=== PATIENT | female | born 1990 | race Two or more races ===

== ENCOUNTER 2018-01-25 06:44 | Inpatient (IN) | payer SELFPAY ==
[2018-01-25] VITALS (11 sets, daily range): BP systolic 119–158; BP diastolic 70–89
[~2018-01-25] VITALS: Ht 157.5 cm; Wt 81.6 kg
[2018-01-25] MEDS ORDERED: fentaNYL PF VIAL 100 MCG/2 ML VIAL IV ONE (07:45)
[2018-01-25] MEDS ORDERED: ONDANSETRON PF 4 MG/2 ML VIAL. IV ONE (07:45)
[2018-01-25] MEDS ORDERED: IV NORMAL SALINE 1000ML BAG 1,000 ML IV ONE (07:45)
[2018-01-25 07:48] LABS: BILIRUBIN,URINE NEGATIVE (NEG); CLARITY,URINE CLEAR; COLOR,URINE YELLOW; NITRITE,URINE NEGATIVE (NEG); PH,URINE 6.5; PROTEIN,URINE NEGATIVE (NEG-TRACE); UROBILINOGEN,URINE 0.2 mg/dL (0.2 mg/dL)
--- NOTE | 2018-01-25 08:05 | RAD ---
Indication:RUQ PAIN TECHNIQUE: Grayscale, color Doppler and spectral waveform is of the abdomen obtained. COMPARISON:None FINDINGS:Visualized pancreas is within normal limits. Pancreatic tail not visualized due to overlying bowel gas. IVC is patent. Main portal vein is patent. Liver demonstrates diffusely increased echogenicity and decreased through transmission. Gallstones noted. Gallbladder is nondistended. Gallbladder wall measures 3 mm in thickness which is upper limits of normal. CBD measures 7 mm in diameter and is dilated. Right kidney measures 13.8 cm in length without hydronephrosis. IMPRESSION: 1. Cholelithiasis without sonographic evidence of acute cholecystitis. If concern for acute cholecystitis persists, please consider nuclear medicine HIDA scan. 2. Dilated CBD which may be from choledocholithiasis, stricture or mass. Consider further evaluation with MRCP. 3. Hepatic steatosis. Electronically signed by: Rich Marcano DO (01/25/2018 8:02 AM) [facility]
[2018-01-25 08:09] LABS: BACTERIA,URINE 0 /HPF (0-FEW); RBC,URINE 0 /HPF (0-2); SQUAMOUS EPITHELIAL CELL,UR MANY /LPF
[2018-01-25 08:20] LABS: BASO % 0 % (0-3); EOS # 0.2 x10^3/uL (0.0-0.7); EOS % 2 % (0-3); HEMATOCRIT 39.9 % (36.0-47.0); HEMOGLOBIN 13.6 g/dL (12.0-15.5); LYMPH % 20 % (24-48); MEAN CORPUSCULAR HEMOGLOBIN 29 pg (25-35); MEAN CORPUSCULAR HGB CONC 34 g/dL (31-37); MEAN CORPUSCULAR VOLUME 85 fL (79-100); MONO # 0.4 x10^3/uL (0.0-1.1); MONO % 4 % (0-9); NEUT # 7.4 x10^3uL (1.8-7.7); NEUT % 74 % (31-73); PLATELET COUNT 266 x10^3/uL (140-400); RED BLOOD COUNT 4.68 x10^6/uL (3.50-5.40); RED CELL DISTRIBUTION WIDTH 14.1 % (11.5-14.5); WHITE BLOOD COUNT 10.1 x10^3/uL (4.0-11.0)
[2018-01-25 08:31] LABS: CALCIUM 9.2 mg/dL (8.5-10.1); CREATININE 0.8 mg/dL (0.6-1.0); GFR 86.7; POTASSIUM 4.1 mmol/L (3.5-5.1)
[2018-01-25] MEDS ORDERED: MORPHINE SULFATE 4 MG/ML VIAL. ONE (08:36)
[2018-01-25 08:37] LABS: ALBUMIN 3.7 g/dL (3.4-5.0); ALBUMIN/GLOBULIN RATIO 0.9 (1.0-1.7); TOTAL BILIRUBIN 0.3 mg/dL (0.2-1.0)
[2018-01-25] MEDS ORDERED: MORPHINE SULFATE 4 MG/ML VIAL. IV ONE (08:45)
--- NOTE | 2018-01-25 09:03 | PHYS DOC ---
Past Medical History Past Medical History: No Pertinent History Past Surgical History: No Surgical History Alcohol Use: None Drug Use: None Adult General Chief Complaint Chief Complaint: ABDOMINAL PAIN HPI HPI Patient is a 27 year old f p/w abdo pain ruq sharp x 8 hours worse with palpation and deep breathing. radiates to back. has had this in the past but gone away on its own nauseas no fever no diarrhea. Review of Systems Review of Systems Constitutional: Denies fever or chills [] Eyes: Denies change in visual acuity, redness, or eye pain [] HENT: Denies nasal congestion or sore throat [] Musculoskeletal: Denies back pain or joint pain [] Integument: Denies rash or skin lesions [] Neurologic: Denies headache, focal weakness or sensory changes [] Endocrine: Denies polyuria or polydipsia [] All other systems were reviewed and found to be within normal limits, except as documented in this note. Current Medications Current Medications Current Medications Medications (Trade) Dose Ordered Sig/Wes Start Time Stop Time Status Last Admin Dose Admin Fentanyl Citrate (Fentanyl 2ml Vial) 50 mcg 1X ONCE 01/25/18 07:45 01/25/18 07:46 DC 01/25/18 08:07 50 MCG Morphine Sulfate (Morphine Sulfate) 4 mg STK-MED ONCE 01/25/18 08:36 01/25/18 08:37 DC Ondansetron HCl (Zofran) 4 mg 1X ONCE 01/25/18 07:45 01/25/18 07:46 DC 01/25/18 08:04 4 MG Sodium Chloride 1,000 ml @ 1,000 mls/hr 1X ONCE 01/25/18 07:45 01/25/18 08:44 DC 01/25/18 08:07 1,000 MLS/HR Allergies Allergies Allergies Coded Allergies Type Severity Reaction Last Updated Verified No Known Drug Allergies 09/26/14 No Physical Exam Physical Exam Constitutional: Well developed, well nourished, no acute distress, non-toxic appearance. [] HENT: Normocephalic, atraumatic, bilateral external ears normal, oropharynx moist, no oral exudates, nose normal. [] Eyes: PERRLA, EOMI, conjunctiva normal, no discharge. [] Neck: Normal range of motion, no tenderness, supple, no stridor. [] resp: normal effort no increased work of breathing. Abdomen: Bowel sounds normal, soft, ruq tenderness with positive murphys sign. no masses, no pulsatile masses. [] Neurologic: Alert and oriented X 3, normal motor function, normal sensory function, no focal deficits noted. [] Psychologic: Affect normal, judgement normal, mood normal. [] Current Patient Data Vital Signs Vital Signs Date Time Temp Pulse Resp B/P (MAP) Pulse Ox O2 Delivery O2 Flow Rate FiO2 01/25/18 08:43 68 18 171/83 (112) 98 01/25/18 07:41 98.0 Room Air 98.0 Lab Values Laboratory Tests Test 01/25/18 07:30 01/25/18 07:40 01/25/18 08:03 Urine Collection Type Unknown Urine Color Yellow Urine Clarity Clear Urine pH 6.5 Urine Specific [place] >=1.030 Urine Protein Negative mg/dL (NEG-TRACE) Urine Glucose (UA) Negative mg/dL (NEG) Urine Ketones (Stick) Negative mg/dL (NEG) Urine Blood Negative (NEG) Urine Nitrite Negative (NEG) Urine Bilirubin Negative (NEG) Urine Urobilinogen Dipstick 0.2 mg/dL (0.2 mg/dL) Urine Leukocyte Esterase Trace (NEG) Urine RBC 0 /HPF (0-2) Urine WBC 1-4 /HPF (0-4) Urine Squamous Epithelial Cells Many /LPF Urine Bacteria 0 /HPF (0-FEW) POC Urine HCG, Qualitative Hcg negative (Negative) White Blood Count 10.1 x10^3/uL (4.0-11.0) Red Blood Count 4.68 x10^6/uL (3.50-5.40) Hemoglobin 13.6 g/dL (12.0-15.5) Hematocrit 39.9 % (36.0-47.0) Mean Corpuscular Volume 85 fL (79-100) Mean Corpuscular Hemoglobin 29 pg (25-35) Mean Corpuscular Hemoglobin Concent 34 g/dL (31-37) Red Cell Distribution Width 14.1 % (11.5-14.5) Platelet Count 266 x10^3/uL (140-400) Neutrophils (%) (Auto) 74 % (31-73) H Lymphocytes (%) (Auto) 20 % (24-48) L Monocytes (%) (Auto) 4 % (0-9) Eosinophils (%) (Auto) 2 % (0-3) Basophils (%) (Auto) 0 % (0-3) Neutrophils # (Auto) 7.4 x10^3uL (1.8-7.7) Lymphocytes # (Auto) 2.0 x10^3/uL (1.0-4.8) Monocytes # (Auto) 0.4 x10^3/uL (0.0-1.1) Eosinophils # (Auto) 0.2 x10^3/uL (0.0-0.7) Basophils # (Auto) 0.0 x10^3/uL (0.0-0.2) Sodium Level 140 mmol/L (136-145) Potassium Level 4.1 mmol/L (3.5-5.1) Chloride Level 102 mmol/L (98-107) Carbon Dioxide Level 30 mmol/L (21-32) Anion Gap 8 (6-14) Blood Urea Nitrogen 21 mg/dL (7-20) H Creatinine 0.8 mg/dL (0.6-1.0) Estimated GFR (Cockcroft-Gault) 86.7 BUN/Creatinine Ratio 26 (6-20) H Glucose Level 130 mg/dL (70-99) H Calcium Level 9.2 mg/dL (8.5-10.1) Total Bilirubin 0.3 mg/dL (0.2-1.0) Aspartate Amino Transferase (AST) 23 U/L (15-37) Alanine Aminotransferase (ALT) 43 U/L (14-59) Alkaline Phosphatase 100 U/L (46-116) Total Protein 8.0 g/dL (6.4-8.2) Albumin 3.7 g/dL (3.4-5.0) Albumin/Globulin Ratio 0.9 (1.0-1.7) L Lipase 122 U/L (73-393) Laboratory Tests 01/25/18 08:03 Laboratory Tests 01/25/18 08:03 EKG EKG [] Radiology/Procedures Radiology/Procedures [] Impressions: IMPRESSION: 1. Cholelithiasis without sonographic evidence of acute cholecystitis. If concern for acute cholecystitis persists, please consider nuclear medicine HIDA scan. 2. Dilated CBD which may be from choledocholithiasis, stricture or mass. Consider further evaluation with MRCP. 3. Hepatic steatosis. Electronically signed by: Rich Marcano DO (01/25/2018 8:02 AM) [facility] Course & Med Decision Making Course & Med Decision Making Pertinent Labs and Imaging studies reviewed. (See chart for details) []two doses of narcotics, still in pain. c/f possible early cholecystitis or choledocholithiasis given u/s finding. will admit for surgery consutl, pain control, serial labs, and consideration of further imaging. Dragon Disclaimer Dragon Disclaimer This electronic medical record was generated, in whole or in part, using a voice recognition dictation system. Departure Departure Impression: Primary Impression: Cholelithiasis Disposition: ADMITTED INPATIENT Admitting Physician: Harriet Luna Condition: STABLE Referrals: NO PCP (PCP) ELHAM RIVAS MD Jan 25, 2018 09:03
[2018-01-25] MEDS ORDERED: ONDANSETRON PF 4 MG/2 ML VIAL. IV PRN ×3 (09:15→18:45)
[2018-01-25] MEDS: MORPHINE SULFATE 4 MG/ML VIAL. IV PRN ×4 (10:36→22:08)
[2018-01-25] MEDS: IV NORMAL SALINE 1000ML BAG 1,000 ML IV SCH ×2 (10:37→20:06)
--- NOTE | 2018-01-25 11:03 | PDOC2 ---
BERNARDO FORRESTER [employer] FIN[employer]ER 01/25/18 1103: CONSULT Date of Consult Date of Consult DATE: 01/25/18 TIME: 10:51 Reason for Consult Reason for Consult: cholelithiasis Referring Physician Referring Physician: ER Identification/Chief Complaint Chief Complaint abdominal pain Source Source: Chart review, Patient History of Present Illness Reason for Visit: Reports 1 year hx of intermittent abdominal pain, seems aggravated with greasy foods. Started yesterday and was RUQ, radiated to back, associated nausea. Past Medical History Past Medical History no pertinent hx Past Surgical History Past Surgical History: No pertinent history Family History Family History: Other (noncontributory to current illness) Social History No ALCOHOL: none Drugs: None Lives: with Family Current Problem List Problem List Problems Medical Problems: (1) Cholelithiasis Status: Acute Current Medications Current Medications Current Medications Fentanyl Citrate (Fentanyl 2ml Vial) 50 mcg 1X ONCE IV Last administered on at 08:07; Start 01/25/18 at 07:45; Stop 01/25/18 at 07:46; Status DC Sodium Chloride 1,000 ml @ 1,000 mls/hr 1X ONCE IV Last administered on at 08:07; Start 01/25/18 at 07:45; Stop 01/25/18 at 08:44; Status DC Ondansetron HCl (Zofran) 4 mg 1X ONCE IV Last administered on 01/25/18at 08:04 ; Start 01/25/18 at 07:45; Stop 01/25/18 at 07:46; Status DC Morphine Sulfate (Morphine Sulfate) 4 mg 1X ONCE IV Last administered on at 08:42; Start 01/25/18 at 08:45; Stop 01/25/18 at 08:46; Status DC Morphine Sulfate (Morphine Sulfate) 4 mg STK-MED ONCE .ROUTE ; Start 01/25/18 at 08:36; Stop 01/25/18 at 08:37; Status DC Ondansetron HCl (Zofran) 4 mg PRN Q8HRS PRN IV NAUSEA/VOMITING; Start 01/25/18 at 09:15; Stop 01/26/18 at 09:14 Morphine Sulfate (Morphine Sulfate) 4 mg PRN Q2HR PRN IV PAIN Last administered on 01/25/18at 10:36; Start 01/25/18 at 09:15; Stop 01/26/18 at 09:14 Sodium Chloride 1,000 ml @ 100 mls/hr Q10H IV Last administered on 01/25/18at 10:37; Start 01/25/18 at 09:04; Stop 01/26/18 at 09:03 Allergies Allergies: Coded Allergies: No Known Drug Allergies (Unverified , 01/25/18) ROS General: No: Chills, Other (fevers) PSYCHOLOGICAL ROS: No: Anxiety, Depression Eyes: No Blurry vision, No Double vision HEENT: No: Heacaches, Sore Throat Hematological and Lymphatic: No: Bleeding Problems, Blood Clots Respiratory: No: Cough, Shortness of breath Cardiovascular: No Chest Pain, No Palpitations Gastrointestinal: Yes Other (see hpi) Genitourinary: No Dysuria, No Hematuria Musculoskeletal: No Joint Pain, No Joint Swelling Neurological: No Confusion, No Numbness/Tingling Skin: No Pruritus, No Rash Physical Exam General: Alert, Oriented X3, Cooperative, No acute distress HEENT: PERRLA, Mucous membr. moist/pink Lungs: Clear to auscultation, Normal air movement Heart: Regular rate, Normal S1, Normal S2, No murmurs Abdomen: Soft, Other (RUQ TTP) Extremities: No clubbing, No cyanosis Skin: No rashes, No breakdown Neuro: Normal gait, Normal speech Psych/Mental Status: Mental status NL, Mood NL MUSCULOSKELETAL: No deformity, No swelling Vitals VITALS Vital Signs Date Time Temp Pulse Resp B/P (MAP) Pulse Ox O2 Delivery O2 Flow Rate FiO2 01/25/18 10:36 Room Air 01/25/18 09:37 77 18 173/102 (125) 99 01/25/18 07:41 98.0 98.0 Labs Labs Laboratory Tests Test 01/25/18 07:30 01/25/18 07:40 01/25/18 08:03 Urine Collection Type Unknown Urine Color Yellow Urine Clarity Clear Urine pH 6.5 Urine Specific [place] >=1.030 Urine Protein Negative mg/dL (NEG-TRACE) Urine Glucose (UA) Negative mg/dL (NEG) Urine Ketones (Stick) Negative mg/dL (NEG) Urine Blood Negative (NEG) Urine Nitrite Negative (NEG) Urine Bilirubin Negative (NEG) Urine Urobilinogen Dipstick 0.2 mg/dL (0.2 mg/dL) Urine Leukocyte Esterase Trace (NEG) Urine RBC 0 /HPF (0-2) Urine WBC 1-4 /HPF (0-4) Urine Squamous Epithelial Cells Many /LPF Urine Bacteria 0 /HPF (0-FEW) Bedside Urine HCG, Qualitative Hcg negative (Negative) White Blood Count 10.1 x10^3/uL (4.0-11.0) Red Blood Count 4.68 x10^6/uL (3.50-5.40) Hemoglobin 13.6 g/dL (12.0-15.5) Hematocrit 39.9 % (36.0-47.0) Mean Corpuscular Volume 85 fL (79-100) Mean Corpuscular Hemoglobin 29 pg (25-35) Mean Corpuscular Hemoglobin Concent 34 g/dL (31-37) Red Cell Distribution Width 14.1 % (11.5-14.5) Platelet Count 266 x10^3/uL (140-400) Neutrophils (%) (Auto) 74 % (31-73) Lymphocytes (%) (Auto) 20 % (24-48) Monocytes (%) (Auto) 4 % (0-9) Eosinophils (%) (Auto) 2 % (0-3) Basophils (%) (Auto) 0 % (0-3) Neutrophils # (Auto) 7.4 x10^3uL (1.8-7.7) Lymphocytes # (Auto) 2.0 x10^3/uL (1.0-4.8) Monocytes # (Auto) 0.4 x10^3/uL (0.0-1.1) Eosinophils # (Auto) 0.2 x10^3/uL (0.0-0.7) Basophils # (Auto) 0.0 x10^3/uL (0.0-0.2) Sodium Level 140 mmol/L (136-145) Potassium Level 4.1 mmol/L (3.5-5.1) Chloride Level 102 mmol/L (98-107) Carbon Dioxide Level 30 mmol/L (21-32) Anion Gap 8 (6-14) Blood Urea Nitrogen 21 mg/dL (7-20) Creatinine 0.8 mg/dL (0.6-1.0) Estimated GFR (Cockcroft-Gault) 86.7 BUN/Creatinine Ratio 26 (6-20) Glucose Level 130 mg/dL (70-99) Calcium Level 9.2 mg/dL (8.5-10.1) Total Bilirubin 0.3 mg/dL (0.2-1.0) Aspartate Amino Transf (AST/SGOT) 23 U/L (15-37) Alanine Aminotransferase (ALT/SGPT) 43 U/L (14-59) Alkaline Phosphatase 100 U/L (46-116) Total Protein 8.0 g/dL (6.4-8.2) Albumin 3.7 g/dL (3.4-5.0) Albumin/Globulin Ratio 0.9 (1.0-1.7) Lipase 122 U/L (73-393) Laboratory Tests Test 01/25/18 07:30 01/25/18 07:40 01/25/18 08:03 Urine Collection Type Unknown Urine Color Yellow Urine Clarity Clear Urine pH 6.5 Urine Specific [place] >=1.030 Urine Protein Negative mg/dL (NEG-TRACE) Urine Glucose (UA) Negative mg/dL (NEG) Urine Ketones (Stick) Negative mg/dL (NEG) Urine Blood Negative (NEG) Urine Nitrite Negative (NEG) Urine Bilirubin Negative (NEG) Urine Urobilinogen Dipstick 0.2 mg/dL (0.2 mg/dL) Urine Leukocyte Esterase Trace (NEG) Urine RBC 0 /HPF (0-2) Urine WBC 1-4 /HPF (0-4) Urine Squamous Epithelial Cells Many /LPF Urine Bacteria 0 /HPF (0-FEW) Bedside Urine HCG, Qualitative Hcg negative (Negative) White Blood Count 10.1 x10^3/uL (4.0-11.0) Red Blood Count 4.68 x10^6/uL (3.50-5.40) Hemoglobin 13.6 g/dL (12.0-15.5) Hematocrit 39.9 % (36.0-47.0) Mean Corpuscular Volume 85 fL (79-100) Mean Corpuscular Hemoglobin 29 pg (25-35) Mean Corpuscular Hemoglobin Concent 34 g/dL (31-37) Red Cell Distribution Width 14.1 % (11.5-14.5) Platelet Count 266 x10^3/uL (140-400) Neutrophils (%) (Auto) 74 % (31-73) Lymphocytes (%) (Auto) 20 % (24-48) Monocytes (%) (Auto) 4 % (0-9) Eosinophils (%) (Auto) 2 % (0-3) Basophils (%) (Auto) 0 % (0-3) Neutrophils # (Auto) 7.4 x10^3uL (1.8-7.7) Lymphocytes # (Auto) 2.0 x10^3/uL (1.0-4.8) Monocytes # (Auto) 0.4 x10^3/uL (0.0-1.1) Eosinophils # (Auto) 0.2 x10^3/uL (0.0-0.7) Basophils # (Auto) 0.0 x10^3/uL (0.0-0.2) Sodium Level 140 mmol/L (136-145) Potassium Level 4.1 mmol/L (3.5-5.1) Chloride Level 102 mmol/L (98-107) Carbon Dioxide Level 30 mmol/L (21-32) Anion Gap 8 (6-14) Blood Urea Nitrogen 21 mg/dL (7-20) Creatinine 0.8 mg/dL (0.6-1.0) Estimated GFR (Cockcroft-Gault) 86.7 BUN/Creatinine Ratio 26 (6-20) Glucose Level 130 mg/dL (70-99) Calcium Level 9.2 mg/dL (8.5-10.1) Total Bilirubin 0.3 mg/dL (0.2-1.0) Aspartate Amino Transf (AST/SGOT) 23 U/L (15-37) Alanine Aminotransferase (ALT/SGPT) 43 U/L (14-59) Alkaline Phosphatase 100 U/L (46-116) Total Protein 8.0 g/dL (6.4-8.2) Albumin 3.7 g/dL (3.4-5.0) Albumin/Globulin Ratio 0.9 (1.0-1.7) Lipase 122 U/L (73-393) Assessment/Plan Assessment/Plan symptomatic cholelithiasis obesity likely lap emy, will review with Dr Estrada on timing noted CBD 7mm--no stones noted, normal Tbili--will review with SULEMAN Thornton MD 01/25/18 5126: CONSULT Assessment/Plan Assessment/Plan Pt seen and examined by myself; 27 year old female admitted with RUQ pain; she has been experiencing the pain intermittently for many months, but it worsened prompting her admission. PMH/PSH/ROS/SH as above; exam: alert, oriented, no icterus, no neck masses, lungs clear, heart RR and R, abdomen super morbidly obese, tender RUQ, ext neg for edema. A/P) Suspect calculous cholecystitis, recommend lap emy. The details and risks of surgery were discussed with the patient. She understands and would like to proceed. BERNARDO FORRESTER APRN Jan 25, 2018 11:03 SULEMAN ESTRADA MD Jan 25, 2018 18:18
--- NOTE | 2018-01-25 11:06 | PDOC1 ---
History and Physical Date of Admission Date of Admission DATE: 01/25/18 TIME: 11:02 Identification/Chief Complaint Chief Complaint abd pain Source Source: Caregiver, Chart review, Patient History of Present Illness History of Present Illness 27-year-old obese female, BMI 33, intermittent abdominal pain maybe for the few months now, but worse in the past few days. Some nausea but no emesis, no diarrhea, no by mouth intake because of the pain. No fever. Cholelithiasis on ultrasound but no cholecystitis but maybe dilatation of the CBD hence admitted for pain control with consults to GI and GS Patient not taking any meds prior to admission except for aspirin when necessary HAs not taken aspirin in the past week or so Past Medical History Cardiovascular: No pertinent hx Pulmonary: No pertinent hx GI: No pertinent hx Heme/Onc: No pertinent hx Hepatobiliary: No pertinent hx Psych: No pertinent hx Rheumatologic: No pertinent hx Infectious disease: No pertinent hx ENT: No pertinent hx Renal/: No pertinent hx Endocrine: No pertinent hx Dermatology: No pertinent hx Past Surgical History Past Surgical History: No pertinent history Family History Family History: No Significant Social History Smoke: No ALCOHOL: none Drugs: None Current Problem List Problem List Problems Medical Problems: (1) Cholelithiasis Status: Acute Current Medications Current Medications Current Medications Fentanyl Citrate (Fentanyl 2ml Vial) 50 mcg 1X ONCE IV Last administered on at 08:07; Start 01/25/18 at 07:45; Stop 01/25/18 at 07:46; Status DC Sodium Chloride 1,000 ml @ 1,000 mls/hr 1X ONCE IV Last administered on at 08:07; Start 01/25/18 at 07:45; Stop 01/25/18 at 08:44; Status DC Ondansetron HCl (Zofran) 4 mg 1X ONCE IV Last administered on 01/25/18at 08:04 ; Start 01/25/18 at 07:45; Stop 01/25/18 at 07:46; Status DC Morphine Sulfate (Morphine Sulfate) 4 mg 1X ONCE IV Last administered on at 08:42; Start 01/25/18 at 08:45; Stop 01/25/18 at 08:46; Status DC Morphine Sulfate (Morphine Sulfate) 4 mg STK-MED ONCE .ROUTE ; Start 01/25/18 at 08:36; Stop 01/25/18 at 08:37; Status DC Ondansetron HCl (Zofran) 4 mg PRN Q8HRS PRN IV NAUSEA/VOMITING; Start 01/25/18 at 09:15; Stop 01/26/18 at 09:14 Morphine Sulfate (Morphine Sulfate) 4 mg PRN Q2HR PRN IV PAIN Last administered on 01/25/18at 10:36; Start 01/25/18 at 09:15; Stop 01/26/18 at 09:14 Sodium Chloride 1,000 ml @ 100 mls/hr Q10H IV Last administered on 01/25/18at 10:37; Start 01/25/18 at 09:04; Stop 01/26/18 at 09:03 Allergies Allergies: Coded Allergies: No Known Drug Allergies (Unverified , 09/26/14) ROS Review of System Per history of present illness, the rest of ROS 14 point negative Physical Exam General: Alert, Oriented X3, Cooperative, No acute distress HEENT: Atraumatic, PERRLA, EOMI Lungs: Clear to auscultation, Normal air movement Heart: S1S2, RRR, no thrills, no rubs, no gallops, no murmurs Cardiovascular: S1, S2 Breasts: Normal, Rt breast nml w/o mass, Lt breast nml w/o mass, Nipples normal Abdomen: Soft, Other (tenderness right upper quadrant area, voluntary guarding , normoactive bowel sounds,) Rectal Exam: not examined PELVIC: Nml ext genitalia Extremities: No clubbing, No cyanosis, No edema, Normal pulses, No tenderness/ swelling Skin: No rashes, No breakdown, No significant lesion Neuro: Normal gait, Normal speech, Strength at 5/5 X4 ext, Normal tone, Sensation intact, Cranial nerves 3-12 NL, Reflexes 2+ Psych/Mental Status: Mental status NL, Mood NL Vitals Vitals Vital Signs Date Time Temp Pulse Resp B/P (MAP) Pulse Ox O2 Delivery O2 Flow Rate FiO2 01/25/18 10:36 Room Air 01/25/18 09:37 77 18 173/102 (125) 99 01/25/18 07:41 98.0 98.0 Labs Labs Laboratory Tests Test 01/25/18 07:30 01/25/18 07:40 01/25/18 08:03 Urine Collection Type Unknown Urine Color Yellow Urine Clarity Clear Urine pH 6.5 Urine Specific [place] >=1.030 Urine Protein Negative mg/dL (NEG-TRACE) Urine Glucose (UA) Negative mg/dL (NEG) Urine Ketones (Stick) Negative mg/dL (NEG) Urine Blood Negative (NEG) Urine Nitrite Negative (NEG) Urine Bilirubin Negative (NEG) Urine Urobilinogen Dipstick 0.2 mg/dL (0.2 mg/dL) Urine Leukocyte Esterase Trace (NEG) Urine RBC 0 /HPF (0-2) Urine WBC 1-4 /HPF (0-4) Urine Squamous Epithelial Cells Many /LPF Urine Bacteria 0 /HPF (0-FEW) Bedside Urine HCG, Qualitative Hcg negative (Negative) White Blood Count 10.1 x10^3/uL (4.0-11.0) Red Blood Count 4.68 x10^6/uL (3.50-5.40) Hemoglobin 13.6 g/dL (12.0-15.5) Hematocrit 39.9 % (36.0-47.0) Mean Corpuscular Volume 85 fL (79-100) Mean Corpuscular Hemoglobin 29 pg (25-35) Mean Corpuscular Hemoglobin Concent 34 g/dL (31-37) Red Cell Distribution Width 14.1 % (11.5-14.5) Platelet Count 266 x10^3/uL (140-400) Neutrophils (%) (Auto) 74 % (31-73) Lymphocytes (%) (Auto) 20 % (24-48) Monocytes (%) (Auto) 4 % (0-9) Eosinophils (%) (Auto) 2 % (0-3) Basophils (%) (Auto) 0 % (0-3) Neutrophils # (Auto) 7.4 x10^3uL (1.8-7.7) Lymphocytes # (Auto) 2.0 x10^3/uL (1.0-4.8) Monocytes # (Auto) 0.4 x10^3/uL (0.0-1.1) Eosinophils # (Auto) 0.2 x10^3/uL (0.0-0.7) Basophils # (Auto) 0.0 x10^3/uL (0.0-0.2) Sodium Level 140 mmol/L (136-145) Potassium Level 4.1 mmol/L (3.5-5.1) Chloride Level 102 mmol/L (98-107) Carbon Dioxide Level 30 mmol/L (21-32) Anion Gap 8 (6-14) Blood Urea Nitrogen 21 mg/dL (7-20) Creatinine 0.8 mg/dL (0.6-1.0) Estimated GFR (Cockcroft-Gault) 86.7 BUN/Creatinine Ratio 26 (6-20) Glucose Level 130 mg/dL (70-99) Calcium Level 9.2 mg/dL (8.5-10.1) Total Bilirubin 0.3 mg/dL (0.2-1.0) Aspartate Amino Transf (AST/SGOT) 23 U/L (15-37) Alanine Aminotransferase (ALT/SGPT) 43 U/L (14-59) Alkaline Phosphatase 100 U/L (46-116) Total Protein 8.0 g/dL (6.4-8.2) Albumin 3.7 g/dL (3.4-5.0) Albumin/Globulin Ratio 0.9 (1.0-1.7) Lipase 122 U/L (73-393) Laboratory Tests Test 01/25/18 07:30 01/25/18 07:40 01/25/18 08:03 Urine Collection Type Unknown Urine Color Yellow Urine Clarity Clear Urine pH 6.5 Urine Specific [place] >=1.030 Urine Protein Negative mg/dL (NEG-TRACE) Urine Glucose (UA) Negative mg/dL (NEG) Urine Ketones (Stick) Negative mg/dL (NEG) Urine Blood Negative (NEG) Urine Nitrite Negative (NEG) Urine Bilirubin Negative (NEG) Urine Urobilinogen Dipstick 0.2 mg/dL (0.2 mg/dL) Urine Leukocyte Esterase Trace (NEG) Urine RBC 0 /HPF (0-2) Urine WBC 1-4 /HPF (0-4) Urine Squamous Epithelial Cells Many /LPF Urine Bacteria 0 /HPF (0-FEW) Bedside Urine HCG, Qualitative Hcg negative (Negative) White Blood Count 10.1 x10^3/uL (4.0-11.0) Red Blood Count 4.68 x10^6/uL (3.50-5.40) Hemoglobin 13.6 g/dL (12.0-15.5) Hematocrit 39.9 % (36.0-47.0) Mean Corpuscular Volume 85 fL (79-100) Mean Corpuscular Hemoglobin 29 pg (25-35) Mean Corpuscular Hemoglobin Concent 34 g/dL (31-37) Red Cell Distribution Width 14.1 % (11.5-14.5) Platelet Count 266 x10^3/uL (140-400) Neutrophils (%) (Auto) 74 % (31-73) Lymphocytes (%) (Auto) 20 % (24-48) Monocytes (%) (Auto) 4 % (0-9) Eosinophils (%) (Auto) 2 % (0-3) Basophils (%) (Auto) 0 % (0-3) Neutrophils # (Auto) 7.4 x10^3uL (1.8-7.7) Lymphocytes # (Auto) 2.0 x10^3/uL (1.0-4.8) Monocytes # (Auto) 0.4 x10^3/uL (0.0-1.1) Eosinophils # (Auto) 0.2 x10^3/uL (0.0-0.7) Basophils # (Auto) 0.0 x10^3/uL (0.0-0.2) Sodium Level 140 mmol/L (136-145) Potassium Level 4.1 mmol/L (3.5-5.1) Chloride Level 102 mmol/L (98-107) Carbon Dioxide Level 30 mmol/L (21-32) Anion Gap 8 (6-14) Blood Urea Nitrogen 21 mg/dL (7-20) Creatinine 0.8 mg/dL (0.6-1.0) Estimated GFR (Cockcroft-Gault) 86.7 BUN/Creatinine Ratio 26 (6-20) Glucose Level 130 mg/dL (70-99) Calcium Level 9.2 mg/dL (8.5-10.1) Total Bilirubin 0.3 mg/dL (0.2-1.0) Aspartate Amino Transf (AST/SGOT) 23 U/L (15-37) Alanine Aminotransferase (ALT/SGPT) 43 U/L (14-59) Alkaline Phosphatase 100 U/L (46-116) Total Protein 8.0 g/dL (6.4-8.2) Albumin 3.7 g/dL (3.4-5.0) Albumin/Globulin Ratio 0.9 (1.0-1.7) Lipase 122 U/L (73-393) VTE Prophylaxis Ordered VTE Prophylaxis Devices: Yes VTE Pharmacological Prophylaxi: Yes Assessment/Plan Assessment/Plan Symptomatic cholelithiasis Dilated CBD, question need for MRCP? Obesity BMI 33 PLAN: Nothing by mouth, IV fluids, fentanyl for pain control instead of morphine GI and GS consults PPI while nothing by mouth Supportive meds Discussed with staff NELLI LANTIGUA MD Jan 25, 2018 11:06
[2018-01-25] MEDS ORDERED: PANTOPRAZOLE IV PUSH 40 MG VIAL. IVP ONE (11:15)
[2018-01-25] MEDS ORDERED: fentaNYL PF VIAL 100 MCG/2 ML VIAL IV PRN ×5 (11:15→18:45)
[2018-01-25] MEDS ORDERED: IV RINGERS,LACTATED 1000ML 1,000 ML IV SCH ×2 (11:55→18:34)
--- NOTE | 2018-01-25 11:58 | PDOC ---
A/P: Confirmed w/ RN - GI consult cancelled. DELMA ZELAYA Jan 25, 2018 11:58
[2018-01-25] MEDS ORDERED: HYDROmorphone 2 MG/ML VIAL IV PRN ×2 (12:00→18:45)
[2018-01-25] MEDS ORDERED: PROCHLORPERAZINE 10 MG/2 ML VIAL. IV PRN ×2 (12:00→18:45)
[2018-01-25] MEDS ORDERED: LIDOCAINE 1% PF 2 ML VIAL. ID PRN ×2 (12:00→18:45)
[2018-01-25] MEDS ORDERED: MORPHINE SULFATE 2 MG/ML VIAL. IV PRN ×2 (12:00→18:45)
[2018-01-25] MEDS ORDERED: SURGICEL HEMOSTAT 4X8 EACH. ONE (14:36)
[2018-01-25] MEDS ORDERED: IOHEXOL 300 MG/ML 100ML VIAL. ONE (14:36)
[2018-01-25] MEDS ORDERED: BUPIVAC MPF-EPI 0.5%-1:200000 30 ML VIAL. ONE (14:36)
[2018-01-25] MEDS ORDERED: ONDANSETRON PF 4 MG/2 ML VIAL. ONE (15:32)
[2018-01-25] MEDS ORDERED: fentaNYL PF VIAL 100 MCG/2 ML VIAL ONE ×2 (15:32→18:34)
[2018-01-25] MEDS ORDERED: ROCURONIUM 50 MG/5 ML VIAL. ONE (15:32)
[2018-01-25] MEDS ORDERED: PROPOFOL 20 ML IV ONE (15:32)
[2018-01-25] MEDS ORDERED: MIDAZOLAM HCL/PF 2 MG/2 ML VIAL. ONE (15:32)
[2018-01-25] MEDS ORDERED: DEXAMETHASONE SOD PHOS 20 MG/5 ML VIAL. ONE (15:32)
[2018-01-25] MEDS ORDERED: FAMOTIDINE 20 MG/2 ML VIAL ONE (15:32)
[2018-01-25] MEDS ORDERED: KETOROLAC 30 MG/ML INJ FOR OR. INJ ONE (16:13)
[2018-01-25] MEDS ORDERED: ceFAZolin SODIUM 1 GM VIAL ONE (16:32)
[2018-01-25] MEDS ORDERED: NEOSTIGMINE METHYLSULFATE 5 MG/5 ML SYRINGE. ONE (17:05)
[2018-01-25] MEDS ORDERED: GLYCOPYRROLATE 1 MG/5 ML VIAL. ONE (17:05)
--- NOTE | 2018-01-25 17:38 | RAD ---
EXAM: Intraoperative cholangiogram. HISTORY: Intraoperative cholangiogram with cholecystectomy. COMPARISON: None. FINDINGS: 4 fluoroscopic images are obtained intraoperatively during injection of the cystic duct remnant after cholecystectomy. There are no filling defects to suggest retained stones. The common duct is not dilated. Fluoroscopy time 0.19 minutes. IMPRESSION: No evidence of retained stones. Electronically signed by: Leora Hanna MD (01/25/2018 5:36 PM) [facility]
[2018-01-25] MEDS ORDERED: DESFLURANE 61 TO 120 MINUTES IH ONE (17:42)
--- NOTE | 2018-01-25 18:24 | PDOC4 ---
Operative Note Operative Note Operative Note: Preoperative Diagnosis: Calculus cholecystitis Postoperative Diagnosis: Acute and chronic cholecystitis Procedure: Laparoscopic cholecystectomy with intraoperative cholangiogram Surgeons: Sean System: Kenisha CHIU Anesthesia: Gen. Estimated Blood Loss: 100 mL Specimen: Gallbladder to pathology Drains: None Complications: None Indications: The patient is a 27-year-old female who was admitted with right upper quadrant pain. Her evaluation is consistent with calculus cholecystitis. Surgical treatment was offered by means of a laparoscopic cholecystectomy. The risks of surgery were discussed which include bleeding, infection, bile duct injury, bile leak, pain, the potential for additional surgeries or procedures. The patient understands and would like to proceed. Description: The patient was taken to the operating room and laid supine on the operating table. General anesthesia was performed. The abdomen was prepped with ChloraPrep and draped in a standard surgical fashion. A small incision was made in the patient's right abdomen through to visualized 5 mm trocar was inserted. A pneumoperitoneum was created and the laparoscope was introduced. In the upper midabdomen an 11 mm trocar was inserted. The right upper quadrant two 5 mm trochars were inserted. The gallbladder appeared thick walled and firm with a marked fibrotic reaction. We aspirated approximately 40 mL of clearish fluid allowing for some decompression. The gallbladder was then retracted cephalad. We began dissecting along the inferior aspect. The dissection proved to be difficult due to the marked chronic fibrotic reaction which obscured the anatomy. Gradually we were able to identify what appeared most likely to be the cystic duct. An opening was made in the duct and a cholangiocatheter placed within and secured with a clip. Using contrast dye and fluoroscopy an intraoperative cholangiogram was performed that appeared unremarkable. The clip and catheter were then withdrawn. Three clips were placed on the cystic duct and it was divided. The cystic artery was then identified, dissected free, doubly clipped and divided as well. The gallbladder was then mobilized away from the liver with cautery. This also was difficult again due to the degree of chronic inflammatory change. Eventually however the gallbladder was fully mobilized and placed in an endoscopic bag. A Surgicel pack was placed on the gallbladder fossa to assist with hemostasis. A 19 Japanese round Luis drain was then left in the upper midabdomen which exited in the right lateral incision site. This was secured to the skin with 2-0 silk. The gallbladder was then extracted at the superior incision site. The skin and fascial incisions had to be extended some to allow for extraction of the inflamed gallbladder containing very large stones. The fascia was then reapproximated with interrupted 0 PDS sutures. The abdominal cavity was reinsufflated and reinspected. All blood and irrigation fluid was suctioned and hemostasis was good. The remaining ports were removed and the pneumoperitoneum was relieved. The skin incisions were closed using 4-0 Monocryl suture. Steri-Strips and dressings were then applied. The patient tolerated the procedure well and was sent to the recovery room in stable condition. At the end of the case all counts were correct. SULEMAN CARVALHO MD Jan 25, 2018 18:23
[2018-01-25] MEDS: ONDANSETRON PF 4 MG/2 ML VIAL. IV PRN (20:09)
[2018-01-25] MEDS: oxyCODONE/APAP 5/325 1 TAB TABLET PO PRN (22:15)
[2018-01-26] MEDS: oxyCODONE/APAP 5/325 1 TAB TABLET PO PRN ×4 (02:53→15:33)
[2018-01-26 03:23] VITALS: BP 114/49
[2018-01-26] MEDS: IV NORMAL SALINE 1000ML BAG 1,000 ML IV SCH (06:42)
[2018-01-26 07:15] VITALS: BP 123/58
[2018-01-26] MEDS ORDERED: PANTOPRAZOLE IV PUSH 40 MG VIAL. IVP SCH (07:30)
[2018-01-26] MEDS: MORPHINE SULFATE 4 MG/ML VIAL. IV PRN (08:33)
--- NOTE | 2018-01-26 08:42 | PDOC ---
SURGICAL PROGRESS NOTE Subjective tolerating clears, no emesis sore, overall improved urinating Vital Signs Vital Signs Date Time Temp Pulse Resp B/P (MAP) Pulse Ox O2 Delivery O2 Flow Rate FiO2 01/26/18 08:33 95 Room Air 01/26/18 07:15 98.2 76 20 123/58 (79) 98.2 01/25/18 18:33 10 I&O Intake and Output 01/26/18 07:00 Intake Total 3027 ml Output Total 200 ml Balance 2827 ml Intake Oral 500 ml IV Total 2527 ml Output Urine Total 100 ml Estimated Blood Loss 100 ml # Voids 1 General: Alert, Oriented X3, Cooperative, No acute distress Abdomen: Soft, Other (ND, dressings dry, MARIELA serosang ) Labs Laboratory Tests Test 01/25/18 07:30 01/25/18 07:40 01/25/18 08:03 Urine Collection Type Unknown Urine Color Yellow Urine Clarity Clear Urine pH 6.5 Urine Specific [place] >=1.030 Urine Protein Negative mg/dL (NEG-TRACE) Urine Glucose (UA) Negative mg/dL (NEG) Urine Ketones (Stick) Negative mg/dL (NEG) Urine Blood Negative (NEG) Urine Nitrite Negative (NEG) Urine Bilirubin Negative (NEG) Urine Urobilinogen Dipstick 0.2 mg/dL (0.2 mg/dL) Urine Leukocyte Esterase Trace (NEG) Urine RBC 0 /HPF (0-2) Urine WBC 1-4 /HPF (0-4) Urine Squamous Epithelial Cells Many /LPF Urine Bacteria 0 /HPF (0-FEW) Bedside Urine HCG, Qualitative Hcg negative (Negative) White Blood Count 10.1 x10^3/uL (4.0-11.0) Red Blood Count 4.68 x10^6/uL (3.50-5.40) Hemoglobin 13.6 g/dL (12.0-15.5) Hematocrit 39.9 % (36.0-47.0) Mean Corpuscular Volume 85 fL (79-100) Mean Corpuscular Hemoglobin 29 pg (25-35) Mean Corpuscular Hemoglobin Concent 34 g/dL (31-37) Red Cell Distribution Width 14.1 % (11.5-14.5) Platelet Count 266 x10^3/uL (140-400) Neutrophils (%) (Auto) 74 % (31-73) Lymphocytes (%) (Auto) 20 % (24-48) Monocytes (%) (Auto) 4 % (0-9) Eosinophils (%) (Auto) 2 % (0-3) Basophils (%) (Auto) 0 % (0-3) Neutrophils # (Auto) 7.4 x10^3uL (1.8-7.7) Lymphocytes # (Auto) 2.0 x10^3/uL (1.0-4.8) Monocytes # (Auto) 0.4 x10^3/uL (0.0-1.1) Eosinophils # (Auto) 0.2 x10^3/uL (0.0-0.7) Basophils # (Auto) 0.0 x10^3/uL (0.0-0.2) Sodium Level 140 mmol/L (136-145) Potassium Level 4.1 mmol/L (3.5-5.1) Chloride Level 102 mmol/L (98-107) Carbon Dioxide Level 30 mmol/L (21-32) Anion Gap 8 (6-14) Blood Urea Nitrogen 21 mg/dL (7-20) Creatinine 0.8 mg/dL (0.6-1.0) Estimated GFR (Cockcroft-Gault) 86.7 BUN/Creatinine Ratio 26 (6-20) Glucose Level 130 mg/dL (70-99) Calcium Level 9.2 mg/dL (8.5-10.1) Total Bilirubin 0.3 mg/dL (0.2-1.0) Aspartate Amino Transf (AST/SGOT) 23 U/L (15-37) Alanine Aminotransferase (ALT/SGPT) 43 U/L (14-59) Alkaline Phosphatase 100 U/L (46-116) Total Protein 8.0 g/dL (6.4-8.2) Albumin 3.7 g/dL (3.4-5.0) Albumin/Globulin Ratio 0.9 (1.0-1.7) Lipase 122 U/L (73-393) Problem List Problems Medical Problems: (1) Cholelithiasis Status: Acute Assessment/Plan s/p emy advance diet can dc home when tolerating diet, ambulating, and pain managed on oral meds home with drain and FU next week in clinic BERNARDO FORRESTER [employer]ER Jan 26, 2018 08:42
[2018-01-26] MEDS ORDERED: OXYC1TAB7 PO (08:44)
--- NOTE | 2018-01-26 10:26 | PDOC ---
PROGRESS NOTES History of Present Illness History of Present Illness Assessment/Plan Assessment/Plan Symptomatic cholelithiasis pod #2? Obesity BMI 33 PLAN: fentanyl for pain control instead of morphine GI and GS consults Supportive meds Discussed with RN Vitals Vitals Vital Signs Date Time Temp Pulse Resp B/P (MAP) Pulse Ox O2 Delivery O2 Flow Rate FiO2 01/26/18 10:01 Room Air 01/26/18 08:33 95 01/26/18 07:15 98.2 76 20 123/58 (79) 98.2 01/25/18 18:33 10 Physical Exam General: Alert, Oriented X3, Cooperative, No acute distress Heart: Regular rate, Normal S1, Normal S2, No murmurs Lungs: Clear Abdomen: Soft, Other (ND, dressings dry, MARIELA serosang ) Extremities: No clubbing, No cyanosis, No edema, Normal pulses, No tenderness/ swelling Skin: No rashes, No breakdown, No significant lesion Assessment and Plan Assessmemt and Plan Problems Medical Problems: (1) Cholelithiasis Status: Acute Comment Review of Relevant I have reviewed the following items antoinette (where applicable) has been applied. Labs Laboratory Tests Test 01/25/18 07:30 01/25/18 07:40 01/25/18 08:03 Urine Collection Type Unknown Urine Color Yellow Urine Clarity Clear Urine pH 6.5 Urine Specific [place] >=1.030 Urine Protein Negative mg/dL (NEG-TRACE) Urine Glucose (UA) Negative mg/dL (NEG) Urine Ketones (Stick) Negative mg/dL (NEG) Urine Blood Negative (NEG) Urine Nitrite Negative (NEG) Urine Bilirubin Negative (NEG) Urine Urobilinogen Dipstick 0.2 mg/dL (0.2 mg/dL) Urine Leukocyte Esterase Trace (NEG) Urine RBC 0 /HPF (0-2) Urine WBC 1-4 /HPF (0-4) Urine Squamous Epithelial Cells Many /LPF Urine Bacteria 0 /HPF (0-FEW) Bedside Urine HCG, Qualitative Hcg negative (Negative) White Blood Count 10.1 x10^3/uL (4.0-11.0) Red Blood Count 4.68 x10^6/uL (3.50-5.40) Hemoglobin 13.6 g/dL (12.0-15.5) Hematocrit 39.9 % (36.0-47.0) Mean Corpuscular Volume 85 fL (79-100) Mean Corpuscular Hemoglobin 29 pg (25-35) Mean Corpuscular Hemoglobin Concent 34 g/dL (31-37) Red Cell Distribution Width 14.1 % (11.5-14.5) Platelet Count 266 x10^3/uL (140-400) Neutrophils (%) (Auto) 74 % (31-73) Lymphocytes (%) (Auto) 20 % (24-48) Monocytes (%) (Auto) 4 % (0-9) Eosinophils (%) (Auto) 2 % (0-3) Basophils (%) (Auto) 0 % (0-3) Neutrophils # (Auto) 7.4 x10^3uL (1.8-7.7) Lymphocytes # (Auto) 2.0 x10^3/uL (1.0-4.8) Monocytes # (Auto) 0.4 x10^3/uL (0.0-1.1) Eosinophils # (Auto) 0.2 x10^3/uL (0.0-0.7) Basophils # (Auto) 0.0 x10^3/uL (0.0-0.2) Sodium Level 140 mmol/L (136-145) Potassium Level 4.1 mmol/L (3.5-5.1) Chloride Level 102 mmol/L (98-107) Carbon Dioxide Level 30 mmol/L (21-32) Anion Gap 8 (6-14) Blood Urea Nitrogen 21 mg/dL (7-20) Creatinine 0.8 mg/dL (0.6-1.0) Estimated GFR (Cockcroft-Gault) 86.7 BUN/Creatinine Ratio 26 (6-20) Glucose Level 130 mg/dL (70-99) Calcium Level 9.2 mg/dL (8.5-10.1) Total Bilirubin 0.3 mg/dL (0.2-1.0) Aspartate Amino Transf (AST/SGOT) 23 U/L (15-37) Alanine Aminotransferase (ALT/SGPT) 43 U/L (14-59) Alkaline Phosphatase 100 U/L (46-116) Total Protein 8.0 g/dL (6.4-8.2) Albumin 3.7 g/dL (3.4-5.0) Albumin/Globulin Ratio 0.9 (1.0-1.7) Lipase 122 U/L (73-393) Medications Current Medications Fentanyl Citrate (Fentanyl 2ml Vial) 50 mcg 1X ONCE IV Last administered on at 08:07; Start 01/25/18 at 07:45; Stop 01/25/18 at 07:46; Status DC Sodium Chloride 1,000 ml @ 1,000 mls/hr 1X ONCE IV Last administered on at 08:07; Start 01/25/18 at 07:45; Stop 01/25/18 at 08:44; Status DC Ondansetron HCl (Zofran) 4 mg 1X ONCE IV Last administered on 01/25/18at 08:04 ; Start 01/25/18 at 07:45; Stop 01/25/18 at 07:46; Status DC Morphine Sulfate (Morphine Sulfate) 4 mg 1X ONCE IV Last administered on at 08:42; Start 01/25/18 at 08:45; Stop 01/25/18 at 08:46; Status DC Morphine Sulfate (Morphine Sulfate) 4 mg STK-MED ONCE .ROUTE ; Start 01/25/18 at 08:36; Stop 01/25/18 at 08:37; Status DC Ondansetron HCl (Zofran) 4 mg PRN Q8HRS PRN IV NAUSEA/VOMITING; Start 01/25/18 at 09:15; Stop 01/25/18 at 11:03; Status DC Morphine Sulfate (Morphine Sulfate) 4 mg PRN Q2HR PRN IV PAIN Last administered on 01/26/18at 08:33; Start 01/25/18 at 09:15; Stop 01/26/18 at 09:14 ; Status DC Sodium Chloride 1,000 ml @ 100 mls/hr Q10H IV Last administered on 01/26/18at 06:42; Start 01/25/18 at 09:04; Stop 01/26/18 at 09:03; Status DC Ondansetron HCl (Zofran) 4 mg PRN Q6HRS PRN IV NAUSEA/VOMITING 1ST CHOICE Last administered on 01/25/18at 20:09; Start 01/25/18 at 11:15 Fentanyl Citrate (Fentanyl 2ml Vial) 50 mcg PRN Q2HR PRN IV PAIN Last administered on 01/25/18at 11:16; Start 01/25/18 at 11:15 Pantoprazole Sodium (PROTONIX VIAL for IV PUSH) 40 mg 1X ONCE IVP Last administered on 01/25/18at 11:27; Start 01/25/18 at 11:15; Stop 01/25/18 at 11:16 ; Status DC Pantoprazole Sodium (PROTONIX VIAL for IV PUSH) 40 mg DAILYAC IVP Last administered on 01/26/18at 06:40; Start 01/26/18 at 07:30 Cefazolin Sodium/ Dextrose 50 ml @ 100 mls/hr 1X PREOP PRN IV energy economist to or; Start 01/26/18 at 06:00; Stop 01/26/18 at 06:00; Status DC Ondansetron HCl (Zofran) 4 mg PRN Q6HRS PRN IV NAUSEA/VOMITING; Start 01/25/18 at 12:00; Stop 01/25/18 at 18:00; Status DC Fentanyl Citrate (Fentanyl 2ml Vial) 25 mcg PRN Q5MIN PRN IV MILD PAIN; Start 01/25/18 at 12:00; Stop 01/25/18 at 18:00; Status DC Fentanyl Citrate (Fentanyl 2ml Vial) 50 mcg PRN Q5MIN PRN IV MODERATE TO SEVERE PAIN; Start 01/25/18 at 12:00; Stop 01/25/18 at 18:00; Status DC Morphine Sulfate (Morphine Sulfate) 1 mg PRN Q10MIN PRN IV SEVERE PAIN; Start 01/25/18 at 12:00; Stop 01/25/18 at 18:00; Status DC Ringer's Solution 1,000 ml @ 30 mls/hr Q24H IV ; Start 01/25/18 at 11:55; Stop 01/25/18 at 23:54; Status DC Lidocaine HCl (Xylocaine-Mpf 1% 2ml Vial) 2 ml 1X PRN PRN ID IV START; Start 01/25/18 at 12:00; Stop 01/25/18 at 18:00; Status DC Hydromorphone HCl (Dilaudid) 0.5 mg PRN Q10MIN PRN IV SEV PAIN, Second choice; Start 01/25/18 at 12:00; Stop 01/25/18 at 18:00; Status DC Prochlorperazine Edisylate (Compazine) 5 mg PACU PRN PRN IV NAUSEA, MRX1; Start 01/25/18 at 12:00; Stop 01/25/18 at 18:00; Status DC Cefazolin Sodium/ Dextrose 50 ml @ As Directed STK-MED ONCE IV ; Start 01/25/18 at 15:31; Stop 01/25/18 at 15:32; Status DC Propofol 20 ml @ As Directed STK-MED ONCE IV ; Start 01/25/18 at 15:32; Stop at 15:33; Status DC Dexamethasone Sodium Phosphate (Decadron) 20 mg STK-MED ONCE .ROUTE ; Start 01/25/18 at 15:32; Stop 01/25/18 at 15:33; Status DC Famotidine (Pepcid Vial) 20 mg STK-MED ONCE .ROUTE ; Start 01/25/18 at 15:32; Stop 01/25/18 at 15:33; Status DC Ondansetron HCl (Zofran) 4 mg STK-MED ONCE .ROUTE ; Start 01/25/18 at 15:32; Stop 01/25/18 at 15:33; Status DC Midazolam HCl (Versed) 2 mg STK-MED ONCE .ROUTE ; Start 01/25/18 at 15:32; Stop 01/25/18 at 15:33; Status DC Fentanyl Citrate (Fentanyl 2ml Vial) 100 mcg STK-MED ONCE .ROUTE ; Start at 15:32; Stop 01/25/18 at 15:33; Status DC Rocuronium [place] (Zemuron) 50 mg STK-MED ONCE .ROUTE ; Start 01/25/18 at 15:32 ; Stop 01/25/18 at 15:33; Status DC Bupivacaine HCl/ Epinephrine Bitart (Sensorcain-Mpf Epi 0.5%-[id number]) 30 ml STK -MED ONCE .ROUTE Last administered on 01/25/18at 18:06; Start 01/25/18 at 14:36 ; Stop 01/25/18 at 15:36; Status DC Iohexol (Omnipaque 300 Mg/ml) 100 ml STK-MED ONCE .ROUTE Last administered on 01/25/18at 16:43; Start 01/25/18 at 14:36; Stop 01/25/18 at 15:36; Status DC Cellulose (Surgicel Hemostat 4x8) 1 each STK-MED ONCE .ROUTE Last administered on 01/25/18at 17:05; Start 01/25/18 at 14:36; Stop 01/25/18 at 15:36; Status DC Ketorolac Tromethamine (Toradol For Or Only) 30 mg STK-MED ONCE INJ ; Start 01/25/18 at 16:13; Stop 01/25/18 at 16:14; Status DC Cefazolin Sodium (Ancef) 1 gm STK-MED ONCE .ROUTE ; Start 01/25/18 at 16:32; Stop 01/25/18 at 16:33; Status DC Glycopyrrolate (Robinul) 1 mg STK-MED ONCE .ROUTE ; Start 01/25/18 at 17:05; Stop 01/25/18 at 17:06; Status DC Neostigmine Methylsulfate (Neostigmine Methylsulfate) 5 mg STK-MED ONCE .ROUTE ; Start 01/25/18 at 17:05; Stop 01/25/18 at 17:06; Status DC Desflurane (Suprane) 60 ml STK-MED ONCE IH ; Start 01/25/18 at 17:42; Stop 01/25 at 17:43; Status DC Oxycodone/ Acetaminophen (Percocet 5/325) 1 tab PRN Q4HRS PRN PO MILD PAIN Last administered on 01/26/18at 02:53; Start 01/25/18 at 18:30 Oxycodone/ Acetaminophen (Percocet 5/325) 2 tab PRN Q4HRS PRN PO MODERATE- SEVERE PAIN Last administered on 01/26/18at 08:27; Start 01/25/18 at 18:30 Ondansetron HCl (Zofran) 4 mg PRN Q6HRS PRN IV NAUSEA/VOMITING; Start 01/25/18 at 18:45; Stop 01/26/18 at 18:44 Fentanyl Citrate (Fentanyl 2ml Vial) 25 mcg PRN Q5MIN PRN IV MILD PAIN; Start 01/25/18 at 18:45; Stop 01/26/18 at 18:44 Fentanyl Citrate (Fentanyl 2ml Vial) 50 mcg PRN Q5MIN PRN IV MODERATE TO SEVERE PAIN Last administered on 01/25/18at 18:39; Start 01/25/18 at 18:45; Stop 01/26/18 at 18:44 Morphine Sulfate (Morphine Sulfate) 1 mg PRN Q10MIN PRN IV SEVERE PAIN; Start 01/25/18 at 18:45; Stop 01/26/18 at 18:44 Ringer's Solution 1,000 ml @ 30 mls/hr Q24H IV ; Start 01/25/18 at 18:34; Stop 01/26/18 at 06:33; Status DC Lidocaine HCl (Xylocaine-Mpf 1% 2ml Vial) 2 ml 1X PRN PRN ID IV START; Start 01/25/18 at 18:45; Stop 01/26/18 at 18:44 Hydromorphone HCl (Dilaudid) 0.5 mg PRN Q10MIN PRN IV SEV PAIN, Second choice; Start 01/25/18 at 18:45; Stop 01/26/18 at 18:44 Prochlorperazine Edisylate (Compazine) 5 mg PACU PRN PRN IV NAUSEA, MRX1; Start 01/25/18 at 18:45; Stop 01/26/18 at 18:44 Fentanyl Citrate (Fentanyl 2ml Vial) 100 mcg STK-MED ONCE .ROUTE ; Start at 18:34; Stop 01/25/18 at 18:35; Status DC Cefazolin Sodium 50 ml @ 100 mls/hr 1X ONCE IV Last administered on at 16:33; Start 01/25/18 at 16:33; Stop 01/25/18 at 18:49; Status DC Cefazolin Sodium/ Dextrose 50 ml @ 100 mls/hr 1X ONCE IV Last administered on 01/25/18at 15:50; Start 01/25/18 at 19:00; Stop 01/25/18 at 19:29; Status DC Active Scripts Active Oxycodone-Acetaminophen 5-325 (Oxycodone Hcl/Acetaminophen) 1 Each Tablet 1 Tab PO PRN Q4HRS PRN Vitals/I & O Vital Sign - Last 24 Hours 01/25/18 01/25/18 01/25/18 01/25/18 10:36 11:00 11:16 12:53 Temp 97.7 97.7 Pulse 63 Resp 18 B/P (MAP) 158/89 (112) Pulse Ox 100 100 O2 Delivery Room Air Room Air Room Air Room Air 01/25/18 01/25/18 01/25/18 01/25/18 12:55 15:00 15:36 15:38 Temp 100.0 99.0 100.0 99.0 Pulse 74 86 Resp 18 15 B/P (MAP) 153/80 (104) 144/58 Pulse Ox 97 100 O2 Delivery Room Air Room Air Room Air Room Air 01/25/18 01/25/18 01/25/18 01/25/18 18:18 18:18 18:33 18:39 Temp 98.4 98.4 Pulse 102 99 Resp 20 20 20 B/P (MAP) 139/64 135/64 Pulse Ox 99 92 99 O2 Delivery Simple Mask Mask Simple Mask Room Air O2 Flow Rate 10 10 10 01/25/18 01/25/18 01/25/18 01/25/18 18:48 19:03 19:20 19:20 Temp 97.5 98.7 97.5 98.7 Pulse 95 96 97 Resp 20 20 24 B/P (MAP) 141/67 149/71 133/84 (100) Pulse Ox 92 96 93 O2 Delivery Room Air Room Air Room Air Room Air 01/25/18 01/25/18 01/25/18 01/25/18 19:35 19:50 20:05 20:07 Pulse 83 89 85 B/P (MAP) 134/85 (101) 130/77 (94) 127/79 (95) Pulse Ox 93 91 90 O2 Delivery Room Air Room Air Room Air Room Air 01/25/18 01/25/18 01/25/18 01/25/18 20:20 20:50 21:20 22:08 Pulse 94 96 103 B/P (MAP) 130/80 (97) 128/75 (92) 119/75 (90) Pulse Ox 89 90 89 O2 Delivery Room Air Room Air Room Air Room Air 01/25/18 01/25/18 01/25/18 01/25/18 22:15 22:20 22:38 23:10 Temp 98.9 98.9 Pulse 99 107 Resp 18 B/P (MAP) 119/70 (86) 119/70 (86) Pulse Ox 90 95 O2 Delivery Room Air Room Air Room Air Room Air 01/25/18 01/26/18 01/26/1818 23:19 02:53 03:23 03:53 Temp 98.4 98.4 Pulse 98 Resp 18 B/P (MAP) 114/49 (70) Pulse Ox 94 O2 Delivery Room Air Room Air Room Air Room Air 01/26/18 01/26/18 01/26/18 01/26/18 07:15 08:15 08:27 08:33 Temp 98.2 98.2 Pulse 76 Resp 20 B/P (MAP) 123/58 (79) Pulse Ox 95 95 95 O2 Delivery Room Air Room Air Room Air Room Air 01/26/18 10:01 O2 Delivery Room Air Intake and Output 01/25/18 01/25/18 01/26/18 15:00 23:00 07:00 Intake Total 1900 ml 1127 ml Output Total 200 ml Balance 1700 ml 1127 ml KAROL KOHLI MD Jan 26, 2018 10:26
[2018-01-26 11:02] VITALS: BP 118/60
[2018-01-26] MEDS: ONDANSETRON PF 4 MG/2 ML VIAL. IV PRN (12:43)
--- NOTE | 2018-01-26 14:39 | PDOC3 ---
Discharge Summary Date of Admission: Jan 25, 2018 Date of Discharge: Jan 26, 2018 Follow-Up: 3-5 days Admitting Diagnosis comment: discharge dx Assessment/Plan Symptomatic cholelithiasis pod #2 Obesity BMI 33 PLAN: home with drain ok with surgery by rn report GI and GS consults Supportive meds Discussed with RN Vitals Vitals Vital Signs Date Time Temp Pulse Resp B/P (MAP) Pulse Ox O2 Delivery O2 Flow Rate FiO2 01/26/18 10:01 Room Air 01/26/18 08:33 95 01/26/18 07:15 98.2 76 20 123/58 (79) 98.2 01/25/18 18:33 10 Physical Exam General: Alert, Oriented X3, Cooperative, No acute distress Heart: Regular rate, Normal S1, Normal S2, No murmurs Lungs: Clear Abdomen: Soft, Other (ND, dressings dry, MARIELA serosang ) Extremities: No clubbing, No cyanosis, No edema, Normal pulses, No tenderness/ swelling Skin: No rashes, No breakdown, No significant lesion Assessment and Plan FINAL DIAGNOSIS Problems Medical Problems: (1) Cholelithiasis Status: Acute Brief Hospital Course Ms. Brown is a 27 old [sex] who presented with [gallstones ] CONDITION AT DISCHARGE: Improved Discharge Medications Current Medications Fentanyl Citrate (Fentanyl 2ml Vial) 50 mcg 1X ONCE IV Last administered on at 08:07; Start 01/25/18 at 07:45; Stop 01/25/18 at 07:46; Status DC Sodium Chloride 1,000 ml @ 1,000 mls/hr 1X ONCE IV Last administered on at 08:07; Start 01/25/18 at 07:45; Stop 01/25/18 at 08:44; Status DC Ondansetron HCl (Zofran) 4 mg 1X ONCE IV Last administered on 01/25/18at 08:04 ; Start 01/25/18 at 07:45; Stop 01/25/18 at 07:46; Status DC Morphine Sulfate (Morphine Sulfate) 4 mg 1X ONCE IV Last administered on at 08:42; Start 01/25/18 at 08:45; Stop 01/25/18 at 08:46; Status DC Morphine Sulfate (Morphine Sulfate) 4 mg STK-MED ONCE .ROUTE ; Start 01/25/18 at 08:36; Stop 01/25/18 at 08:37; Status DC Ondansetron HCl (Zofran) 4 mg PRN Q8HRS PRN IV NAUSEA/VOMITING; Start 01/25/18 at 09:15; Stop 01/25/18 at 11:03; Status DC Morphine Sulfate (Morphine Sulfate) 4 mg PRN Q2HR PRN IV PAIN Last administered on 01/26/18at 08:33; Start 01/25/18 at 09:15; Stop 01/26/18 at 09:14 ; Status DC Sodium Chloride 1,000 ml @ 100 mls/hr Q10H IV Last administered on 01/26/18at 06:42; Start 01/25/18 at 09:04; Stop 01/26/18 at 09:03; Status DC Ondansetron HCl (Zofran) 4 mg PRN Q6HRS PRN IV NAUSEA/VOMITING 1ST CHOICE Last administered on 01/26/18at 12:43; Start 01/25/18 at 11:15 Fentanyl Citrate (Fentanyl 2ml Vial) 50 mcg PRN Q2HR PRN IV PAIN Last administered on 01/25/18at 11:16; Start 01/25/18 at 11:15 Pantoprazole Sodium (PROTONIX VIAL for IV PUSH) 40 mg 1X ONCE IVP Last administered on 01/25/18at 11:27; Start 01/25/18 at 11:15; Stop 01/25/18 at 11:16 ; Status DC Pantoprazole Sodium (PROTONIX VIAL for IV PUSH) 40 mg DAILYAC IVP Last administered on 01/26/18at 06:40; Start 01/26/18 at 07:30 Cefazolin Sodium/ Dextrose 50 ml @ 100 mls/hr 1X PREOP PRN IV experimental electronics developer to or; Start 01/26/18 at 06:00; Stop 01/26/18 at 06:00; Status DC Ondansetron HCl (Zofran) 4 mg PRN Q6HRS PRN IV NAUSEA/VOMITING; Start 01/25/18 at 12:00; Stop 01/25/18 at 18:00; Status DC Fentanyl Citrate (Fentanyl 2ml Vial) 25 mcg PRN Q5MIN PRN IV MILD PAIN; Start 01/25/18 at 12:00; Stop 01/25/18 at 18:00; Status DC Fentanyl Citrate (Fentanyl 2ml Vial) 50 mcg PRN Q5MIN PRN IV MODERATE TO SEVERE PAIN; Start 01/25/18 at 12:00; Stop 01/25/18 at 18:00; Status DC Morphine Sulfate (Morphine Sulfate) 1 mg PRN Q10MIN PRN IV SEVERE PAIN; Start 01/25/18 at 12:00; Stop 01/25/18 at 18:00; Status DC Ringer's Solution 1,000 ml @ 30 mls/hr Q24H IV ; Start 01/25/18 at 11:55; Stop 01/25/18 at 23:54; Status DC Lidocaine HCl (Xylocaine-Mpf 1% 2ml Vial) 2 ml 1X PRN PRN ID IV START; Start 01/25/18 at 12:00; Stop 01/25/18 at 18:00; Status DC Hydromorphone HCl (Dilaudid) 0.5 mg PRN Q10MIN PRN IV SEV PAIN, Second choice; Start 01/25/18 at 12:00; Stop 01/25/18 at 18:00; Status DC Prochlorperazine Edisylate (Compazine) 5 mg PACU PRN PRN IV NAUSEA, MRX1; Start 01/25/18 at 12:00; Stop 01/25/18 at 18:00; Status DC Cefazolin Sodium/ Dextrose 50 ml @ As Directed STK-MED ONCE IV ; Start 01/25/18 at 15:31; Stop 01/25/18 at 15:32; Status DC Propofol 20 ml @ As Directed STK-MED ONCE IV ; Start 01/25/18 at 15:32; Stop at 15:33; Status DC Dexamethasone Sodium Phosphate (Decadron) 20 mg STK-MED ONCE .ROUTE ; Start 01/25/18 at 15:32; Stop 01/25/18 at 15:33; Status DC Famotidine (Pepcid Vial) 20 mg STK-MED ONCE .ROUTE ; Start 01/25/18 at 15:32; Stop 01/25/18 at 15:33; Status DC Ondansetron HCl (Zofran) 4 mg STK-MED ONCE .ROUTE ; Start 01/25/18 at 15:32; Stop 01/25/18 at 15:33; Status DC Midazolam HCl (Versed) 2 mg STK-MED ONCE .ROUTE ; Start 01/25/18 at 15:32; Stop 01/25/18 at 15:33; Status DC Fentanyl Citrate (Fentanyl 2ml Vial) 100 mcg STK-MED ONCE .ROUTE ; Start at 15:32; Stop 01/25/18 at 15:33; Status DC Rocuronium [place] (Zemuron) 50 mg STK-MED ONCE .ROUTE ; Start 01/25/18 at 15:32 ; Stop 01/25/18 at 15:33; Status DC Bupivacaine HCl/ Epinephrine Bitart (Sensorcain-Mpf Epi 0.5%-1:382916) 30 ml STK -MED ONCE .ROUTE Last administered on 01/25/18at 18:06; Start 01/25/18 at 14:36 ; Stop 01/25/18 at 15:36; Status DC Iohexol (Omnipaque 300 Mg/ml) 100 ml STK-MED ONCE .ROUTE Last administered on 01/25/18at 16:43; Start 01/25/18 at 14:36; Stop 01/25/18 at 15:36; Status DC Cellulose (Surgicel Hemostat 4x8) 1 each STK-MED ONCE .ROUTE Last administered on 01/25/18at 17:05; Start 01/25/18 at 14:36; Stop 01/25/18 at 15:36; Status DC Ketorolac Tromethamine (Toradol For Or Only) 30 mg STK-MED ONCE INJ ; Start 01/25/18 at 16:13; Stop 01/25/18 at 16:14; Status DC Cefazolin Sodium (Ancef) 1 gm STK-MED ONCE .ROUTE ; Start 01/25/18 at 16:32; Stop 01/25/18 at 16:33; Status DC Glycopyrrolate (Robinul) 1 mg STK-MED ONCE .ROUTE ; Start 01/25/18 at 17:05; Stop 01/25/18 at 17:06; Status DC Neostigmine Methylsulfate (Neostigmine Methylsulfate) 5 mg STK-MED ONCE .ROUTE ; Start 01/25/18 at 17:05; Stop 01/25/18 at 17:06; Status DC Desflurane (Suprane) 60 ml STK-MED ONCE IH ; Start 01/25/18 at 17:42; Stop 01/25 at 17:43; Status DC Oxycodone/ Acetaminophen (Percocet 5/325) 1 tab PRN Q4HRS PRN PO MILD PAIN Last administered on 01/26/18at 02:53; Start 01/25/18 at 18:30 Oxycodone/ Acetaminophen (Percocet 5/325) 2 tab PRN Q4HRS PRN PO MODERATE- SEVERE PAIN Last administered on 01/26/18at 12:46; Start 01/25/18 at 18:30 Ondansetron HCl (Zofran) 4 mg PRN Q6HRS PRN IV NAUSEA/VOMITING; Start 01/25/18 at 18:45; Stop 01/26/18 at 18:44 Fentanyl Citrate (Fentanyl 2ml Vial) 25 mcg PRN Q5MIN PRN IV MILD PAIN; Start 01/25/18 at 18:45; Stop 01/26/18 at 18:44 Fentanyl Citrate (Fentanyl 2ml Vial) 50 mcg PRN Q5MIN PRN IV MODERATE TO SEVERE PAIN Last administered on 01/25/18at 18:39; Start 01/25/18 at 18:45; Stop 01/26/18 at 18:44 Morphine Sulfate (Morphine Sulfate) 1 mg PRN Q10MIN PRN IV SEVERE PAIN; Start 01/25/18 at 18:45; Stop 01/26/18 at 18:44 Ringer's Solution 1,000 ml @ 30 mls/hr Q24H IV ; Start 01/25/18 at 18:34; Stop 01/26/18 at 06:33; Status DC Lidocaine HCl (Xylocaine-Mpf 1% 2ml Vial) 2 ml 1X PRN PRN ID IV START; Start 01/25/18 at 18:45; Stop 01/26/18 at 18:44 Hydromorphone HCl (Dilaudid) 0.5 mg PRN Q10MIN PRN IV SEV PAIN, Second choice; Start 01/25/18 at 18:45; Stop 01/26/18 at 18:44 Prochlorperazine Edisylate (Compazine) 5 mg PACU PRN PRN IV NAUSEA, MRX1; Start 01/25/18 at 18:45; Stop 10/9/18 at 18:44 Fentanyl Citrate (Fentanyl 2ml Vial) 100 mcg STK-MED ONCE .ROUTE ; Start at 18:34; Stop 01/25/18 at 18:35; Status DC Cefazolin Sodium 50 ml @ 100 mls/hr 1X ONCE IV Last administered on at 16:33; Start 01/25/18 at 16:33; Stop 01/25/18 at 18:49; Status DC Cefazolin Sodium/ Dextrose 50 ml @ 100 mls/hr 1X ONCE IV Last administered on 01/25/18at 15:50; Start 01/25/18 at 19:00; Stop 01/25/18 at 19:29; Status DC Influenza Virus Vaccine (Afluria Trivalent 1700-7593 Syringe) 0.5 ml ONCE ONCE VAX IM ; Start 01/26/18 at 11:00; Stop 01/26/18 at 11:01; Status DC Active Scripts Active Oxycodone-Acetaminophen 5-325 (Oxycodone Hcl/Acetaminophen) 1 Each Tablet 1 Tab PO PRN Q4HRS PRN Vital Signs Vital Signs Date Time Temp Pulse Resp B/P (MAP) Pulse Ox O2 Delivery O2 Flow Rate FiO2 01/26/18 12:46 96 Room Air 01/26/18 11:02 98.6 71 18 118/60 (79) 98.6 01/25/18 18:33 10 Labs Laboratory Tests Test 01/25/18 07:30 01/25/18 07:40 01/25/18 08:03 Urine Collection Type Unknown Urine Color Yellow Urine Clarity Clear Urine pH 6.5 Urine Specific [place] >=1.030 Urine Protein Negative mg/dL (NEG-TRACE) Urine Glucose (UA) Negative mg/dL (NEG) Urine Ketones (Stick) Negative mg/dL (NEG) Urine Blood Negative (NEG) Urine Nitrite Negative (NEG) Urine Bilirubin Negative (NEG) Urine Urobilinogen Dipstick 0.2 mg/dL (0.2 mg/dL) Urine Leukocyte Esterase Trace (NEG) Urine RBC 0 /HPF (0-2) Urine WBC 1-4 /HPF (0-4) Urine Squamous Epithelial Cells Many /LPF Urine Bacteria 0 /HPF (0-FEW) Bedside Urine HCG, Qualitative Hcg negative (Negative) White Blood Count 10.1 x10^3/uL (4.0-11.0) Red Blood Count 4.68 x10^6/uL (3.50-5.40) Hemoglobin 13.6 g/dL (12.0-15.5) Hematocrit 39.9 % (36.0-47.0) Mean Corpuscular Volume 85 fL (79-100) Mean Corpuscular Hemoglobin 29 pg (25-35) Mean Corpuscular Hemoglobin Concent 34 g/dL (31-37) Red Cell Distribution Width 14.1 % (11.5-14.5) Platelet Count 266 x10^3/uL (140-400) Neutrophils (%) (Auto) 74 % (31-73) Lymphocytes (%) (Auto) 20 % (24-48) Monocytes (%) (Auto) 4 % (0-9) Eosinophils (%) (Auto) 2 % (0-3) Basophils (%) (Auto) 0 % (0-3) Neutrophils # (Auto) 7.4 x10^3uL (1.8-7.7) Lymphocytes # (Auto) 2.0 x10^3/uL (1.0-4.8) Monocytes # (Auto) 0.4 x10^3/uL (0.0-1.1) Eosinophils # (Auto) 0.2 x10^3/uL (0.0-0.7) Basophils # (Auto) 0.0 x10^3/uL (0.0-0.2) Sodium Level 140 mmol/L (136-145) Potassium Level 4.1 mmol/L (3.5-5.1) Chloride Level 102 mmol/L (98-107) Carbon Dioxide Level 30 mmol/L (21-32) Anion Gap 8 (6-14) Blood Urea Nitrogen 21 mg/dL (7-20) Creatinine 0.8 mg/dL (0.6-1.0) Estimated GFR (Cockcroft-Gault) 86.7 BUN/Creatinine Ratio 26 (6-20) Glucose Level 130 mg/dL (70-99) Calcium Level 9.2 mg/dL (8.5-10.1) Total Bilirubin 0.3 mg/dL (0.2-1.0) Aspartate Amino Transf (AST/SGOT) 23 U/L (15-37) Alanine Aminotransferase (ALT/SGPT) 43 U/L (14-59) Alkaline Phosphatase 100 U/L (46-116) Total Protein 8.0 g/dL (6.4-8.2) Albumin 3.7 g/dL (3.4-5.0) Albumin/Globulin Ratio 0.9 (1.0-1.7) Lipase 122 U/L (73-393) Allergies Allergies Coded Allergies Type Severity Reaction Last Updated Verified No Known Drug Allergies 01/25/18 No Disposition/Orders: D/C to Home Patient Instructions d/c planning 30 min KAROL KOHLI MD Jan 26, 2018 14:39
--- NOTE | 2018-01-26 14:40 | DISCH ---
DISCHARGE INSTRUCTIONS Condition on Discharge Condition on Discharge: Stable Activity After Discharge Activity Instructions for Disc: Activity as tolerated Bathing Instructions: Shower-keep dressing dry Lifting Instructions after Dis: No heavy lifting, No pulling or pushing Driving Instructions after Dis: Do not drive Diet after Discharge Diet after Discharge: Regular Contacting the DR. after DC Call your doctor for: If your condition worsens KAROL KOHLI MD Jan 26, 2018 14:40
[2018-01-26 15:04] VITALS: BP 117/60
--- NOTE | 2018-01-27 19:08 | PATHOLOGY ---
[facility] Accession Number: [id number] . 01 Material submitted: . GALLBLADDER . 01 Clinical history: . Acute cholecystitis . 02 Diagnosis: Gallbladder, laparoscopic cholecystectomy: - Cholelithiasis. - Acute and chronic cholecystitis with focally increased eosinophils. - Reactive changes and focal recent hemorrhage of gallbladder neck lymph node. LBQ/01/27/2018 . 02 Comment: There is no evidence of malignancy. (JPM/db; 01/27/18) . 02 Electronically signed: . Pb Rosado MD, Pathologist NPI- [id number] . 01 Gross description: . The specimen is received in formalin, labeled "Brown, Thais, gallbladder" and consists of a firm purple-verdin, smooth, and dusky intact gallbladder measuring 7.5 x 3.5 x 2.0 cm. Opening the specimen reveals a lumen packed with multiple yellow and multifaceted calculi ranging from 0.1 cm to 1.7 cm and 6.3 x 5.3 x 1.5 cm in aggregate. The mucosa is brown and trabeculated with a wall thickness average of 0.2 cm. No masses or lesions are identified. A lymph node is identified in the gallbladder neck region measuring 1.1 x 0.5 cm. Telegraph And Teletype Operator sections are submitted in A1-A2 with the lymph node in A2. (SDY; 01/26/2018) SYU/SYU . 02 Pathologist provided ICD-10: K80.10 . 02 CPT . 787692 Specimen Comment: A courtesy copy of this report has been sent to Specimen Comment: [phone], , . Specimen Comment: Report sent to , DR LANTIGUA / DR RIVAS Performed at: 01 [facility] [address], [place], [place] [id number] MD Dionisio Roa MD Phone: [phone] Performed at: 02 [facility] [address], [place] [id number] MD Pb Rosado MD Phone: [phone]
== END 2018-01-26 15:55 | disposition home or self-care (01) | DRG 419 ==
LOC: ER 06:44 → 4 NORTH 09:20
PROVIDERS: ADMIT Internal Medicine; ATTEND Internal Medicine
PROC: BF131ZZ Fluoroscopy of Gallbladder and Bile Ducts using Low Osmolar Contrast (ICD-10-PCS; 2018-01-25)
PROC: 0FT44ZZ Resection of Gallbladder, Percutaneous Endoscopic Approach (ICD-10-PCS; principal; 2018-01-25 14:30)
DX: K80.12 Calculus of gallbladder with acute and chronic cholecystitis without obstruction (principal); E66.01 Morbid (severe) obesity due to excess calories; Z68.33 Body mass index [BMI] 33.0-33.9, adult; Z79.899 Other long term (current) drug therapy
CPT/HCPCS: 36415; 74300; 76705; 80053; 81001; 81025; 83690; 85025; 87086; 88304; 96374; C9113; J0690; J1100; J1885; J2250; J2270; J2405; J2704; J2710; J3010; J3490; J7030; J7120; Q9967; S0028; 99285-25